=== PATIENT | female | born 1980 | race Caucasian/White ===

== ENCOUNTER 2020-12-26 15:32 | Emergency (ER) | payer OTHER, MEDICAID ==
[~2020-12-26] VITALS: Ht 154.9 cm; Wt 68.0 kg
[2020-12-26 15:42] VITALS: BP 136/64
--- NOTE | 2020-12-26 16:08 | NUR ---
Patient ambulated to bed 12 from [facility], steady/even gait.
[2020-12-26] MEDS ORDERED: HYDROcodone/APAP 5/325 MG 1 TAB TAB PO ONE (16:10)
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
--- NOTE | 2020-12-26 16:40 | NUR ---
EUSEBIO handed to CPT Donna at ER bedside
--- NOTE | 2020-12-26 16:59 | NUR ---
RAD at bedside
--- NOTE | 2020-12-26 17:10 | NUR ---
Patient transported to CT by WC
--- NOTE | 2020-12-26 17:25 | NUR ---
Pt returned from CT by wheelchair.
--- NOTE | 2020-12-26 17:35 | NUR ---
Patient states + relief to pain, rates pain 6/10.
[2020-12-26] MEDS ORDERED: methocarbamoL 500 MG TAB PO ONE (18:25)
[2020-12-26] MEDS ORDERED: NAPROXEN 500 MG TAB PO ONE (18:25)
[2020-12-26] MEDS ORDERED: METH-1681 PO (18:25)
[2020-12-26] MEDS ORDERED: NAPR-54 PO (18:25)
[2020-12-26] MEDS ORDERED: methocarbamoL 500 MG TAB ONE (18:38)
[2020-12-26 18:45] VITALS: BP 121/59
--- NOTE | 2020-12-26 18:50 | NUR ---
Patient discharged with v/s stable. Written and verbal after care instructions given and explained. Patient alert, oriented and verbalized understanding of instructions. Ambulatory with steady gait. All questions addressed prior to discharge. ID band removed. Patient advised to follow up with PMD. Rx of Robaxin, Naproxen given. Patient educated on indication of medication including possible reaction and side effects. Opportunity to ask questions provided and answered.
== END 2020-12-26 16:08 | disposition home or self-care (01) ==
LOC: MED 15:32
DX: S13.4XXA Sprain of ligaments of cervical spine, initial encounter (principal); S20.219A Contusion of unspecified front wall of thorax, initial encounter; S80.01XA Contusion of right knee, initial encounter; V98.8XXA Other specified transport accidents, initial encounter; Y93.89 Activity, other specified; Y92.89 Other specified places as the place of occurrence of the external cause; Y99.8 Other external cause status
CPT/HCPCS: 71045; 72125; 73562; 81025; 99284; Q0092

== ENCOUNTER 2023-02-05 07:36 | Emergency (ER) | payer MEDICAID ==
[~2023-02-05] VITALS: Ht 162.6 cm; Wt 72.6 kg
[~2023-02-05 07:36] MED LIST: METH-1681 PO; NAPR-54 PO
[2023-02-05 08:24] VITALS: BP 130/67; PULSE 89; RESP 18; TEMP 97; O2SAT 98
[2023-02-05] MEDS ORDERED: PRED20TA5 PO (09:07)
[2023-02-05] MEDS ORDERED: LORA10TA19 PO (09:07)
[2023-02-05] MEDS ORDERED: OLOP5DRO19 OP (09:07)
[2023-02-05 09:18] VITALS: BP 130/67; PULSE 89; RESP 18; TEMP 97; O2SAT 98
== END 2023-02-05 09:18 | disposition home or self-care (01) ==
LOC: MED 07:36
DX: H10.13 Acute atopic conjunctivitis, bilateral (principal); Z79.899 Other long term (current) drug therapy; Z79.1 Long term (current) use of non-steroidal anti-inflammatories (NSAID)
CPT/HCPCS: 99283